=== PATIENT | male | born 1940 | race Caucasian/White ===

== ENCOUNTER 2020-02-14 02:45 | Inpatient (IN) ==
[2020-02-14] MEDS ORDERED: ACETAMINOPHEN 500 MG TABLET PO STA (03:34)
[2020-02-14] MEDS ORDERED: methylPREDNISolone SOD SUC 125 MG/2 ML VIAL IV STA (03:34)
[2020-02-14 03:49] LABS: ABG HCO3 19.4 MMOL/L (20-26); ABG Oxygen Saturation 94.6 % (95-100); ABG PCO2 29.8 MM HG (35-48); ABG PH 7.386 (7.35-7.45); ABG PO2 72.8 MM HG (80-95); ABG TCO2 15.9 MMOL/L (23-27); Allen Test Positive
[2020-02-14 03:56] LABS: Basophils % 0.2 % (0.0-0.8); Eosinophils % 0.3 % (0.00-10.9); Hematocrit 37.3 VOL% (42.0-52.0); Hemoglobin 12.1 GM/DL (14.0-18.0); Immature Granulocytes % 9.2 %; Immature Granulocytes Absolute 0.54 #; Lymphocytes # 0.2 10*3/uL (1.4-4.0); Lymphocytes % 3.6 % (21.2-54.2); Mean Corpuscular HGB Conc 32.4 GM/DL (32-36); Mean Platelet Volume 11.2 FL (9.6-12.0); Monocytes % 1.4 % (1.7-12.7); Neutrophils % 85.3 % (38.7-73.9); Platelet Count 162 T/CUMM (130-400); Red Blood Count 4.19 MC/CUMM (3.8-5.5); Red Cell Distribution Width 15.5 % (9.3-17.3); White Blood Count 5.9 T/CUMM (4-12)
[2020-02-14] MEDS ORDERED: SODIUM CHLORIDE 0.9% 1,000 ML IV STA (04:17)
[2020-02-14] MEDS ORDERED: PIPERACILLIN/TAZOBACTAM 3,375 MG in SODIUM CHLORIDE 0.9% 100 ML IV STA (04:18)
[2020-02-14 04:26] LABS: Band Neutrophils 2 % (0-10); Hypochromasia Slight; Lymphocytes 3 % (20-55); Segmented Neutrophils 95 % (50-85); Total Cells Counted 100
[2020-02-14 05:10] LABS: Apearance,Urine CLOUDY (Clear); Bacteria,Urine Many /HPF (Few); Blood, Urine Moderate mg/dL (Negative); Glucose,Urine (UA) 50 mg/dL (Negative); Ketones,Urine Negative (Negative); Nitrite,Urine Negative (Negative); Protein,Urine 100 MG/DL; RBC,Urine 43 /HPF (0-4); Squamous Epithelial Cell,Urine Occasional /HPF (0-10); Urine Color Amber (Yellow); Urine Specific Gravity 1.023 (1.001-1.035); WBC,Urine 433 /HPF (0-6)
[2020-02-14 05:12] LABS: Bilirubin,Urine Moderate mg/dL (Negative)
[2020-02-14 05:16] LABS: Alanine Aminotransferase 149 U/L (16-61); Albumin 2.8 G/DL (3.4-5.0); Alkaline Phosphatase 234 U/L (45-117); Aspartate Amino Transferase 220 U/L (0-37); Blood Urea Nitrogen 78 MG/DL (7-18); Estimated Glom Filtration Rate 14 ML/MIN; Ferritin 215.9 ng/ml (26-388); Glucose 238 MG/DL (74-106); Total Protein 7.1 G/DL (6.4-8.3)
[2020-02-14] MEDS ORDERED: ACETAMINOPHEN 325 MG TABLET PO PRN (05:27)
[2020-02-14] MEDS ORDERED: ONDANSETRON 4 MG/2 ML VIAL IV PRN (05:27)
[2020-02-14] MEDS: ASPIRIN 325 MG TABLET PO SCH (06:18)
[2020-02-14] MEDS: SODIUM CHLORIDE 0.9% 1,000 ML IV SCH ×2 (06:49→16:05)
[2020-02-14] MEDS: APIXABAN 2.5 MG TABLET PO SCH ×2 (09:11→20:27)
[2020-02-14] MEDS: methylPREDNISolone SOD SUC 40 MG/1 ML VIAL IV SCH ×2 (09:11→16:14)
[2020-02-14] MEDS: PANTOPRAZOLE 40 MG VIAL IV SCH (09:15)
[2020-02-14] MEDS: ALBUTEROL/IPRATROPIUM 3 ML NEB RESP TX SCH ×4 (12:20→23:55)
[2020-02-14] MEDS: INSULIN LISPRO 100 UNIT/ML SUBCUT SCH ×4 (12:32→23:33)
[2020-02-14] MEDS: SIMVASTATIN 20 MG TABLET PO SCH (18:07)
[2020-02-14] MEDS: PIPERACILLIN/TAZOBACTAM 3,375 MG in SODIUM CHLORIDE 0.9% 100 ML IV SCH (18:07)
[2020-02-14] MEDS: TAMSULOSIN 0.4 MG CAPSULE PO SCH (20:27)
[2020-02-15] MEDS: methylPREDNISolone SOD SUC 40 MG/1 ML VIAL IV SCH (01:12)
[2020-02-15] MEDS: ALBUTEROL/IPRATROPIUM 3 ML NEB RESP TX SCH ×5 (02:55→19:43)
[2020-02-15] MEDS: SODIUM CHLORIDE 0.9% 1,000 ML IV SCH ×3 (04:11→22:38)
[2020-02-15 05:23] LABS: Basophils % 0.1 % (0.0-0.8); Hematocrit 30.8 VOL% (42.0-52.0); Hemoglobin 9.9 GM/DL (14.0-18.0); Immature Granulocytes % 1.4 %; Immature Granulocytes Absolute 0.13 #; Lymphocytes # 0.4 10*3/uL (1.4-4.0); Lymphocytes % 4.6 % (21.2-54.2); Mean Corpuscular HGB Conc 32.1 GM/DL (32-36); Mean Corpuscular Volume 88.3 FL (87-102); Mean Platelet Volume 11.5 FL (9.6-12.0); Monocytes % 4.5 % (1.7-12.7); Neutrophils % 89.4 % (38.7-73.9); Platelet Count 104 T/CUMM (130-400); Red Blood Count 3.49 MC/CUMM (3.8-5.5); Red Cell Distribution Width 15.7 % (9.3-17.3); White Blood Count 9.1 T/CUMM (4-12)
[2020-02-15] MEDS: ASPIRIN 325 MG TABLET PO SCH (05:47)
[2020-02-15] MEDS: PIPERACILLIN/TAZOBACTAM 3,375 MG in SODIUM CHLORIDE 0.9% 100 ML IV SCH ×2 (05:47→17:08)
[2020-02-15 05:48] LABS: Band Neutrophils 9 % (0-10); Lymphocytes 3 % (20-55); Segmented Neutrophils 87 % (50-85); Total Cells Counted 100
[2020-02-15 05:49] LABS: Hypochromasia 1+
[2020-02-15 05:50] LABS: Microcytosis Slight
[2020-02-15 06:03] LABS: Alanine Aminotransferase 95 U/L (16-61); Albumin 2.3 G/DL (3.4-5.0); Alkaline Phosphatase 115 U/L (45-117); Aspartate Amino Transferase 138 U/L (0-37); Blood Urea Nitrogen 96 MG/DL (7-18); Calcium 7.7 MG/DL (8.5-10.1); Estimated Glom Filtration Rate 13 ML/MIN; Glucose 404 MG/DL (74-106); HDL Cholesterol < 10 MG/DL (40-60); Osmolality,Calculated 310.5 MOS/KG (273-304); Thyroid Stimulating Hormone 0.426 uIU/ml (0.358-3.74); Total Protein 6.2 G/DL (6.4-8.3); Triglycerides 217 MG/DL (2-150); VLDL CHOLESTEROL 43.4 MG/DL
[2020-02-15] MEDS ORDERED: methylPREDNISolone SOD SUC 40 MG/1 ML VIAL IV SCH (08:30)
[2020-02-15] MEDS: APIXABAN 2.5 MG TABLET PO SCH ×2 (08:54→20:51)
[2020-02-15] MEDS: sitaGLIPtin 100 MG TABLET PO SCH (08:54)
[2020-02-15] MEDS: METOPROLOL TARTRATE 25 MG TABLET PO SCH ×2 (08:55→20:51)
[2020-02-15] MEDS: INSULIN LISPRO 100 UNIT/ML SUBCUT SCH ×4 (08:58→20:51)
[2020-02-15] MEDS: PANTOPRAZOLE 40 MG VIAL IV SCH (09:03)
[2020-02-15] MEDS: GLIMEPIRIDE 4 MG TABLET PO SCH ×2 (09:04→20:51)
[2020-02-15] MEDS ORDERED: INSULIN LISPRO 100 UNIT/ML SUBCUT ONE ×2 (13:30→15:01)
[2020-02-15] MEDS: SIMVASTATIN 20 MG TABLET PO SCH (18:17)
[2020-02-15] MEDS: TAMSULOSIN 0.4 MG CAPSULE PO SCH (20:51)
[2020-02-16] MEDS: ALBUTEROL/IPRATROPIUM 3 ML NEB RESP TX SCH ×7 (00:46→23:30)
[2020-02-16 05:32] LABS: Basophils % 0.2 % (0.0-0.8); Hematocrit 30.8 VOL% (42.0-52.0); Hemoglobin 9.8 GM/DL (14.0-18.0); Immature Granulocytes % 6.2 %; Immature Granulocytes Absolute 0.64 #; Lymphocytes # 0.5 10*3/uL (1.4-4.0); Mean Corpuscular HGB Conc 31.8 GM/DL (32-36); Mean Corpuscular Volume 88.8 FL (87-102); Mean Platelet Volume 11.8 FL (9.6-12.0); Monocytes % 5.2 % (1.7-12.7); NRBC # 0.03 10*3/uL; Neutrophils % 83.4 % (38.7-73.9); Platelet Count 120 T/CUMM (130-400); Red Blood Count 3.47 MC/CUMM (3.8-5.5); Red Cell Distribution Width 16.2 % (9.3-17.3); White Blood Count 10.3 T/CUMM (4-12)
[2020-02-16] MEDS: ASPIRIN 325 MG TABLET PO SCH (05:45)
[2020-02-16] MEDS: PIPERACILLIN/TAZOBACTAM 3,375 MG in SODIUM CHLORIDE 0.9% 100 ML IV SCH (05:45)
[2020-02-16 05:57] LABS: Band Neutrophils 11 % (0-10); Lymphocytes 5 % (20-55); Nucleated Red Blood Cells 1 (0-5); Segmented Neutrophils 79 % (50-85); Total Cells Counted 100
[2020-02-16 05:58] LABS: Hypochromasia 1+; Microcytosis Slight; Platelet Estimate Adequate
[2020-02-16 06:00] LABS: Albumin 2.4 G/DL (3.4-5.0); Bilirubin,Total 1.4 MG/DL (0.2-1.0); Calcium 7.5 MG/DL (8.5-10.1); Osmolality,Calculated 305.4 MOS/KG (273-304); Total Protein 6.2 G/DL (6.4-8.3)
[2020-02-16] MEDS: METOPROLOL TARTRATE 25 MG TABLET PO SCH ×2 (09:58→22:28)
[2020-02-16] MEDS: sitaGLIPtin 100 MG TABLET PO SCH (09:58)
[2020-02-16] MEDS: APIXABAN 2.5 MG TABLET PO SCH ×2 (09:58→22:28)
[2020-02-16] MEDS: INSULIN LISPRO 100 UNIT/ML SUBCUT SCH ×3 (09:58→22:28)
[2020-02-16] MEDS: GLIMEPIRIDE 4 MG TABLET PO SCH ×2 (09:59→22:28)
[2020-02-16] MEDS: PANTOPRAZOLE 40 MG VIAL IV SCH (09:59)
[2020-02-16] MEDS: SODIUM CHLORIDE 0.9% 1,000 ML IV SCH ×2 (10:32→10:33)
[2020-02-16] MEDS: cefTRIAXone 1,000 MG in SYRINGE 1 EACH IV SCH (18:18)
[2020-02-16] MEDS: SIMVASTATIN 20 MG TABLET PO SCH (18:19)
[2020-02-16] MEDS: TAMSULOSIN 0.4 MG CAPSULE PO SCH (22:28)
[2020-02-17] MEDS: ALBUTEROL/IPRATROPIUM 3 ML NEB RESP TX SCH ×6 (02:20→23:21)
[2020-02-17 04:55] LABS: Basophils % 0.1 % (0.0-0.8); Eosinophils % 0.1 % (0.00-10.9); Hematocrit 29.3 VOL% (42.0-52.0); Hemoglobin 9.5 GM/DL (14.0-18.0); Immature Granulocytes % 6.7 %; Immature Granulocytes Absolute 0.61 #; Lymphocytes # 0.7 10*3/uL (1.4-4.0); Lymphocytes % 7.9 % (21.2-54.2); Mean Corpuscular HGB Conc 32.4 GM/DL (32-36); Mean Corpuscular Volume 88.8 FL (87-102); Mean Platelet Volume 12.1 FL (9.6-12.0); Monocytes % 6.5 % (1.7-12.7); NRBC # 0.02 10*3/uL; Neutrophils % 78.7 % (38.7-73.9); Platelet Count 126 T/CUMM (130-400); Red Cell Distribution Width 16.3 % (9.3-17.3); White Blood Count 9.1 T/CUMM (4-12)
[2020-02-17 05:01] LABS: Albumin 2.3 G/DL (3.4-5.0); Bilirubin,Total 0.7 MG/DL (0.2-1.0); Calcium 7.4 MG/DL (8.5-10.1); Osmolality,Calculated 315.4 MOS/KG (273-304); Total Protein 5.9 G/DL (6.4-8.3)
[2020-02-17 05:30] LABS: Band Neutrophils 4 % (0-10); Eosinophils 1 % (0-10); Hypochromasia 1+; Lymphocytes 8 % (20-55); Metamyelocytes 2 %; Microcytosis 1+; Nucleated Red Blood Cells 2 (0-5); Segmented Neutrophils 78 % (50-85); Total Cells Counted 100
[2020-02-17 05:31] LABS: Platelet Estimate Adequate
[2020-02-17] MEDS: ASPIRIN 325 MG TABLET PO SCH (05:40)
[2020-02-17] MEDS: SODIUM CHLORIDE 0.9% 1,000 ML IV SCH ×4 (05:43→19:55)
[2020-02-17] MEDS: INSULIN LISPRO 100 UNIT/ML SUBCUT SCH ×4 (08:57→20:33)
[2020-02-17] MEDS: PANTOPRAZOLE 40 MG VIAL IV SCH (08:58)
[2020-02-17] MEDS: GLIMEPIRIDE 4 MG TABLET PO SCH ×2 (08:58→21:17)
[2020-02-17] MEDS: APIXABAN 2.5 MG TABLET PO SCH ×2 (08:59→21:17)
[2020-02-17] MEDS: sitaGLIPtin 100 MG TABLET PO SCH (08:59)
[2020-02-17] MEDS: METOPROLOL TARTRATE 25 MG TABLET PO SCH ×2 (08:59→21:17)
[2020-02-17] MEDS: cefTRIAXone 1,000 MG in SYRINGE 1 EACH IV SCH (15:47)
[2020-02-17] MEDS: AMPICILLIN INJ 1,000 MG in SODIUM CHLORIDE 0.9% 100 ML IV SCH (16:48)
[2020-02-17] MEDS: SIMVASTATIN 20 MG TABLET PO SCH (19:03)
[2020-02-17] MEDS: TAMSULOSIN 0.4 MG CAPSULE PO SCH (21:17)
[2020-02-18] MEDS ORDERED: AMIODARONE INJ 150 MG in DEXTROSE 5% 100 ML IV ONE (00:30)
[2020-02-18] MEDS ORDERED: AMIODARONE INJ 450 MG in DEXTROSE 5% 241 ML IV SCH ×2 (00:30→06:30)
[2020-02-18] MEDS: ALBUTEROL/IPRATROPIUM 3 ML NEB RESP TX SCH ×5 (03:16→20:16)
[2020-02-18] MEDS: AMPICILLIN INJ 1,000 MG in SODIUM CHLORIDE 0.9% 100 ML IV SCH ×2 (03:57→16:01)
[2020-02-18 05:12] LABS: Basophils % 0.3 % (0.0-0.8); Eosinophils % 0.4 % (0.00-10.9); Hematocrit 31.9 VOL% (42.0-52.0); Hemoglobin 10.2 GM/DL (14.0-18.0); Immature Granulocytes % 9.9 %; Immature Granulocytes Absolute 1.06 #; Lymphocytes # 0.6 10*3/uL (1.4-4.0); Lymphocytes % 5.3 % (21.2-54.2); Mean Corpuscular Volume 89.6 FL (87-102); Mean Platelet Volume 11.5 FL (9.6-12.0); Neutrophils % 78.1 % (38.7-73.9); Platelet Count 123 T/CUMM (130-400); Red Blood Count 3.56 MC/CUMM (3.8-5.5); Red Cell Distribution Width 16.6 % (9.3-17.3); White Blood Count 10.7 T/CUMM (4-12)
[2020-02-18 05:46] LABS: Albumin 2.4 G/DL (3.4-5.0); Band Neutrophils 2 % (0-10); Bilirubin,Total 0.8 MG/DL (0.2-1.0); Calcium 7.9 MG/DL (8.5-10.1); Eosinophils 1 % (0-10); Lymphocytes 8 % (20-55); Metamyelocytes 2 %; Osmolality,Calculated 312.7 MOS/KG (273-304); Platelet Estimate Decreased; Segmented Neutrophils 81 % (50-85); Total Cells Counted 100; Total Protein 6.1 G/DL (6.4-8.3)
[2020-02-18 05:47] LABS: Hypochromasia Slight
[2020-02-18] MEDS: ASPIRIN 325 MG TABLET PO SCH (06:02)
[2020-02-18] MEDS: SODIUM CHLORIDE 0.9% 1,000 ML IV SCH (06:13)
[2020-02-18] MEDS: PANTOPRAZOLE 40 MG VIAL IV SCH (09:49)
[2020-02-18] MEDS: INSULIN LISPRO 100 UNIT/ML SUBCUT SCH ×4 (09:50→22:02)
[2020-02-18] MEDS: METOPROLOL TARTRATE 25 MG TABLET PO SCH ×2 (09:50→21:21)
[2020-02-18] MEDS: APIXABAN 2.5 MG TABLET PO SCH ×2 (09:51→21:21)
[2020-02-18] MEDS: GLIMEPIRIDE 4 MG TABLET PO SCH ×2 (09:51→21:21)
[2020-02-18] MEDS: sitaGLIPtin 100 MG TABLET PO SCH (09:51)
[2020-02-18] MEDS ORDERED: GLUCAGON 1 MG VIAL IV PRN (16:04)
[2020-02-18] MEDS: BUDESONIDE/FORMOTEROL 160-4.5 INHALER 6 GM INH SCH (21:20)
[2020-02-18] MEDS: TAMSULOSIN 0.4 MG CAPSULE PO SCH (21:21)
[2020-02-18] MEDS: AMIODARONE 200 MG TABLET PO SCH (21:21)
[2020-02-18] MEDS: SIMVASTATIN 20 MG TABLET PO SCH (21:21)
[2020-02-19] MEDS: ALBUTEROL/IPRATROPIUM 3 ML NEB RESP TX SCH ×6 (00:39→19:33)
[2020-02-19] MEDS: SODIUM CHLORIDE 0.9% 1,000 ML IV SCH ×2 (02:32→16:26)
[2020-02-19] MEDS: AMPICILLIN INJ 1,000 MG in SODIUM CHLORIDE 0.9% 100 ML IV SCH ×2 (04:30→16:33)
[2020-02-19] MEDS: ASPIRIN 325 MG TABLET PO SCH (06:00)
[2020-02-19 06:08] LABS: Basophils # 0.1 10*3/uL (0.0-0.2); Basophils % 0.5 % (0.0-0.8); Eosinophils # 0.1 10*3/uL (0.0-0.87); Eosinophils % 1.1 % (0.00-10.9); Hematocrit 33.6 VOL% (42.0-52.0); Hemoglobin 10.5 GM/DL (14.0-18.0); Immature Granulocytes % 12.7 %; Immature Granulocytes Absolute 1.62 #; Mean Corpuscular HGB Conc 31.3 GM/DL (32-36); Mean Corpuscular Volume 90.3 FL (87-102); Mean Platelet Volume 11.2 FL (9.6-12.0); Monocytes % 4.6 % (1.7-12.7); Neutrophils % 73.1 % (38.7-73.9); Platelet Count 155 T/CUMM (130-400); Red Blood Count 3.72 MC/CUMM (3.8-5.5); Red Cell Distribution Width 16.6 % (9.3-17.3); White Blood Count 12.8 T/CUMM (4-12)
[2020-02-19 06:34] LABS: Albumin 2.5 G/DL (3.4-5.0); Calcium 8.3 MG/DL (8.5-10.1); Osmolality,Calculated 311.3 MOS/KG (273-304); Total Protein 6.3 G/DL (6.4-8.3)
[2020-02-19 08:41] LABS: Band Neutrophils 7 % (0-10); Eosinophils 1 % (0-10); Lymphocytes 12 % (20-55); Metamyelocytes 2 %; Myelocytes 2 %; Platelet Estimate Normal; Segmented Neutrophils 72 % (50-85); Total Cells Counted 100
[2020-02-19 08:42] LABS: Anisocytosis 1+
[2020-02-19 08:45] LABS: Macrocytosis Slight
[2020-02-19] MEDS: INSULIN LISPRO 100 UNIT/ML SUBCUT SCH ×4 (08:46→20:52)
[2020-02-19] MEDS: PANTOPRAZOLE 40 MG VIAL IV SCH (09:11)
[2020-02-19] MEDS: sitaGLIPtin 100 MG TABLET PO SCH (09:12)
[2020-02-19] MEDS: GLIMEPIRIDE 4 MG TABLET PO SCH ×2 (09:12→20:53)
[2020-02-19] MEDS: AMIODARONE 200 MG TABLET PO SCH ×2 (09:12→20:53)
[2020-02-19] MEDS: APIXABAN 2.5 MG TABLET PO SCH ×2 (09:12→20:52)
[2020-02-19] MEDS: BUDESONIDE/FORMOTEROL 160-4.5 INHALER 6 GM INH SCH ×2 (09:12→20:54)
[2020-02-19] MEDS: METOPROLOL TARTRATE 25 MG TABLET PO SCH ×2 (09:12→20:52)
[2020-02-19] MEDS: TAMSULOSIN 0.4 MG CAPSULE PO SCH (20:52)
[2020-02-19] MEDS: SIMVASTATIN 20 MG TABLET PO SCH (20:52)
[2020-02-19] MEDS ORDERED: METOPROLOL TARTRATE 25 MG TABLET PO ONE (21:11)
[2020-02-20] MEDS: IPRATROPIUM 500 MCG/2.5 ML NEB RESP TX SCH ×4 (00:29→19:30)
[2020-02-20] MEDS: SODIUM CHLORIDE 0.9% 1,000 ML IV SCH ×2 (04:34→20:07)
[2020-02-20] MEDS: AMPICILLIN INJ 1,000 MG in SODIUM CHLORIDE 0.9% 100 ML IV SCH ×2 (04:34→16:32)
[2020-02-20] MEDS: ASPIRIN 325 MG TABLET PO SCH (04:35)
[2020-02-20 06:03] LABS: Basophils % 0.3 % (0.0-0.8)
[2020-02-20 06:10] LABS: Eosinophils # 0.3 10*3/uL (0.0-0.87); Eosinophils % 2.3 % (0.00-10.9); Hematocrit 27.7 VOL% (42.0-52.0); Hemoglobin 8.6 GM/DL (14.0-18.0); Immature Granulocytes % 13.1 %; Immature Granulocytes Absolute 1.56 #; Lymphocytes # 0.8 10*3/uL (1.4-4.0); Lymphocytes % 6.5 % (21.2-54.2); Mean Corpuscular Volume 90.5 FL (87-102); Monocytes % 4.3 % (1.7-12.7); Neutrophils % 73.5 % (38.7-73.9); Platelet Count 197 T/CUMM (130-400); Red Blood Count 3.06 MC/CUMM (3.8-5.5); Red Cell Distribution Width 16.6 % (9.3-17.3); White Blood Count 11.9 T/CUMM (4-12)
[2020-02-20 07:06] LABS: Band Neutrophils 1 % (0-10); Eosinophils 2 % (0-10); Hypochromasia Slight; Lymphocytes 13 % (20-55); Metamyelocytes 3 %; Myelocytes 2 %; Platelet Estimate Normal; Segmented Neutrophils 71 % (50-85); Total Cells Counted 100
[2020-02-20] MEDS: INSULIN LISPRO 100 UNIT/ML SUBCUT SCH ×4 (08:07→21:12)
[2020-02-20 08:45] LABS: Albumin 2.2 G/DL (3.4-5.0); Bilirubin,Total 0.7 MG/DL (0.2-1.0); Calcium 8.2 MG/DL (8.5-10.1); Total Protein 5.6 G/DL (6.4-8.3); Uric Acid 11.9 MG/DL (3.5-7.2)
[2020-02-20] MEDS: METOPROLOL TARTRATE 50 MG TABLET PO SCH ×2 (09:30→21:11)
[2020-02-20] MEDS: GLIMEPIRIDE 4 MG TABLET PO SCH ×2 (09:30→21:12)
[2020-02-20] MEDS: APIXABAN 2.5 MG TABLET PO SCH ×2 (09:30→21:11)
[2020-02-20] MEDS: AMIODARONE 200 MG TABLET PO SCH ×2 (09:30→21:11)
[2020-02-20] MEDS: sitaGLIPtin 100 MG TABLET PO SCH (09:31)
[2020-02-20] MEDS: BUDESONIDE/FORMOTEROL 160-4.5 INHALER 6 GM INH SCH ×2 (09:31→21:13)
[2020-02-20] MEDS: PANTOPRAZOLE 40 MG VIAL IV SCH (09:31)
[2020-02-20] MEDS: SIMVASTATIN 20 MG TABLET PO SCH (21:12)
[2020-02-20] MEDS: TAMSULOSIN 0.4 MG CAPSULE PO SCH (21:12)
[2020-02-21] MEDS: IPRATROPIUM 500 MCG/2.5 ML NEB RESP TX SCH ×4 (03:15→19:57)
[2020-02-21] MEDS: AMPICILLIN INJ 1,000 MG in SODIUM CHLORIDE 0.9% 100 ML IV SCH ×2 (03:42→17:10)
[2020-02-21] MEDS: SODIUM CHLORIDE 0.9% 1,000 ML IV SCH (05:12)
[2020-02-21 05:29] LABS: Basophils % 0.2 % (0.0-0.8); Eosinophils # 0.3 10*3/uL (0.0-0.87); Eosinophils % 3.1 % (0.00-10.9); Hematocrit 26.7 VOL% (42.0-52.0); Hemoglobin 8.4 GM/DL (14.0-18.0); Immature Granulocytes % 11.4 %; Immature Granulocytes Absolute 1.13 #; Lymphocytes # 0.7 10*3/uL (1.4-4.0); Lymphocytes % 7.3 % (21.2-54.2); Mean Corpuscular HGB Conc 31.5 GM/DL (32-36); Mean Corpuscular Volume 90.2 FL (87-102); Mean Platelet Volume 10.5 FL (9.6-12.0); Monocytes % 4.8 % (1.7-12.7); Neutrophils % 73.2 % (38.7-73.9); Platelet Count 206 T/CUMM (130-400); Red Blood Count 2.96 MC/CUMM (3.8-5.5); Red Cell Distribution Width 16.4 % (9.3-17.3); White Blood Count 9.9 T/CUMM (4-12)
[2020-02-21] MEDS: ASPIRIN 325 MG TABLET PO SCH (05:31)
[2020-02-21 05:46] LABS: Calcium 8.3 MG/DL (8.5-10.1); Osmolality,Calculated 308.7 MOS/KG (273-304)
[2020-02-21 05:51] LABS: Eosinophils 1 % (0-10); Lymphocytes 12 % (20-55); Platelet Estimate Adequate; Segmented Neutrophils 83 % (50-85); Total Cells Counted 100
[2020-02-21 05:52] LABS: Hypochromasia 1+
[2020-02-21] MEDS: GLIMEPIRIDE 4 MG TABLET PO SCH ×2 (09:27→21:22)
[2020-02-21] MEDS: MAGNESIUM SULF INJ 2 GM in SODIUM CHLORIDE 0.9% 1,000 ML IV SCH (09:27)
[2020-02-21] MEDS: APIXABAN 2.5 MG TABLET PO SCH ×2 (09:27→21:22)
[2020-02-21] MEDS: BUDESONIDE/FORMOTEROL 160-4.5 INHALER 6 GM INH SCH ×2 (09:28→21:22)
[2020-02-21] MEDS: MAGNESIUM CHLORIDE 64 MG TABLET PO SCH ×2 (09:28→21:22)
[2020-02-21] MEDS: AMIODARONE 200 MG TABLET PO SCH ×2 (09:28→21:22)
[2020-02-21] MEDS: METOPROLOL TARTRATE 50 MG TABLET PO SCH ×2 (09:28→21:22)
[2020-02-21] MEDS: INSULIN LISPRO 100 UNIT/ML SUBCUT SCH ×4 (09:29→21:43)
[2020-02-21] MEDS: PANTOPRAZOLE 40 MG VIAL IV SCH (09:31)
[2020-02-21] MEDS: sitaGLIPtin 100 MG TABLET PO SCH (09:32)
[2020-02-21] MEDS: SIMVASTATIN 20 MG TABLET PO SCH (21:22)
[2020-02-21] MEDS: TAMSULOSIN 0.4 MG CAPSULE PO SCH (21:22)
[2020-02-22] MEDS: IPRATROPIUM 500 MCG/2.5 ML NEB RESP TX SCH ×4 (01:25→19:27)
[2020-02-22] MEDS: AMPICILLIN INJ 1,000 MG in SODIUM CHLORIDE 0.9% 100 ML IV SCH ×2 (03:50→15:17)
[2020-02-22] MEDS: MAGNESIUM SULF INJ 2 GM in SODIUM CHLORIDE 0.9% 1,000 ML IV SCH (03:50)
[2020-02-22 06:02] LABS: Basophils % 0.2 % (0.0-0.8); Eosinophils # 0.2 10*3/uL (0.0-0.87); Eosinophils % 2.1 % (0.00-10.9); Hemoglobin 8.4 GM/DL (14.0-18.0); Immature Granulocytes % 9.1 %; Immature Granulocytes Absolute 0.79 #; Lymphocytes # 0.7 10*3/uL (1.4-4.0); Mean Corpuscular HGB Conc 31.1 GM/DL (32-36); Mean Corpuscular Volume 91.5 FL (87-102); Mean Platelet Volume 10.2 FL (9.6-12.0); Monocytes % 5.2 % (1.7-12.7); Neutrophils % 75.4 % (38.7-73.9); Platelet Count 207 T/CUMM (130-400); Red Blood Count 2.95 MC/CUMM (3.8-5.5); Red Cell Distribution Width 16.1 % (9.3-17.3); White Blood Count 8.7 T/CUMM (4-12)
[2020-02-22 06:18] LABS: Calcium 8.1 MG/DL (8.5-10.1); Osmolality,Calculated 302.6 MOS/KG (273-304)
[2020-02-22 06:37] LABS: Band Neutrophils 3 % (0-10); Eosinophils 2 % (0-10); Lymphocytes 11 % (20-55); Metamyelocytes 2 %; Segmented Neutrophils 81 % (50-85); Total Cells Counted 100
[2020-02-22 06:38] LABS: Anisocytosis 1+; Hypochromasia 1+; Microcytosis 1+; Platelet Estimate Normal
[2020-02-22] MEDS ORDERED: ASPIRIN 325 MG TABLET PO SCH (09:00)
[2020-02-22] MEDS ORDERED: DEXTROSE 50% 25 GM/50 ML VIAL IV PRN (10:48)
[2020-02-22] MEDS: TRIAMTERENE/HCTZ 37.5-25 MG CAPSULE PO SCH (11:05)
[2020-02-22] MEDS: sitaGLIPtin 100 MG TABLET PO SCH (11:06)
[2020-02-22] MEDS: MAGNESIUM CHLORIDE 64 MG TABLET PO SCH ×2 (11:06→21:39)
[2020-02-22] MEDS: ASPIRIN EC 81 MG TABLET PO SCH (11:06)
[2020-02-22] MEDS: APIXABAN 2.5 MG TABLET PO SCH ×2 (11:06→21:38)
[2020-02-22] MEDS: MONTELUKAST 10 MG TABLET PO SCH (11:07)
[2020-02-22] MEDS: INSULIN LISPRO 100 UNIT/ML SUBCUT SCH ×4 (11:07→21:39)
[2020-02-22] MEDS: PANTOPRAZOLE 40 MG VIAL IV SCH (11:07)
[2020-02-22] MEDS: AMIODARONE 200 MG TABLET PO SCH ×2 (11:07→21:39)
[2020-02-22] MEDS: BUDESONIDE/FORMOTEROL 160-4.5 INHALER 6 GM INH SCH ×2 (11:07→21:40)
[2020-02-22] MEDS: METOPROLOL TARTRATE 50 MG TABLET PO SCH ×2 (11:07→21:39)
[2020-02-22] MEDS: GLIMEPIRIDE 4 MG TABLET PO SCH ×2 (11:09→21:39)
[2020-02-22] MEDS: TAMSULOSIN 0.4 MG CAPSULE PO SCH (21:39)
[2020-02-22] MEDS: SIMVASTATIN 20 MG TABLET PO SCH (21:39)
[2020-02-23] MEDS: IPRATROPIUM 500 MCG/2.5 ML NEB RESP TX SCH ×4 (01:00→19:58)
[2020-02-23] MEDS: AMPICILLIN INJ 1,000 MG in SODIUM CHLORIDE 0.9% 100 ML IV SCH ×2 (04:20→16:18)
[2020-02-23 04:53] LABS: Basophils % 0.2 % (0.0-0.8); Eosinophils # 0.2 10*3/uL (0.0-0.87); Eosinophils % 1.9 % (0.00-10.9); Hematocrit 25.8 VOL% (42.0-52.0); Hemoglobin 8.2 GM/DL (14.0-18.0); Immature Granulocytes % 6.3 %; Immature Granulocytes Absolute 0.54 #; Lymphocytes # 0.7 10*3/uL (1.4-4.0); Lymphocytes % 8.2 % (21.2-54.2); Mean Corpuscular HGB Conc 31.8 GM/DL (32-36); Mean Corpuscular Volume 89.3 FL (87-102); Mean Platelet Volume 10.7 FL (9.6-12.0); Neutrophils % 76.4 % (38.7-73.9); Platelet Count 220 T/CUMM (130-400); Red Blood Count 2.89 MC/CUMM (3.8-5.5); Red Cell Distribution Width 16.1 % (9.3-17.3); White Blood Count 8.6 T/CUMM (4-12)
[2020-02-23 05:18] LABS: Band Neutrophils 6 % (0-10); Hypochromasia 1+; Lymphocytes 8 % (20-55); Microcytosis 1+; Platelet Estimate Adequate; Segmented Neutrophils 81 % (50-85); Total Cells Counted 100
[2020-02-23 05:37] LABS: Calcium 8.5 MG/DL (8.5-10.1); Osmolality,Calculated 299.8 MOS/KG (273-304)
[2020-02-23] MEDS: INSULIN LISPRO 100 UNIT/ML SUBCUT SCH ×4 (08:28→21:16)
[2020-02-23] MEDS: TRIAMTERENE/HCTZ 37.5-25 MG CAPSULE PO SCH (09:22)
[2020-02-23] MEDS: sitaGLIPtin 100 MG TABLET PO SCH (09:22)
[2020-02-23] MEDS: APIXABAN 2.5 MG TABLET PO SCH ×2 (09:22→21:16)
[2020-02-23] MEDS: ASPIRIN EC 81 MG TABLET PO SCH (09:22)
[2020-02-23] MEDS: PANTOPRAZOLE 40 MG VIAL IV SCH (09:22)
[2020-02-23] MEDS: METOPROLOL TARTRATE 50 MG TABLET PO SCH ×2 (09:22→21:16)
[2020-02-23] MEDS: MAGNESIUM CHLORIDE 64 MG TABLET PO SCH ×2 (09:22→21:16)
[2020-02-23] MEDS: MONTELUKAST 10 MG TABLET PO SCH (09:22)
[2020-02-23] MEDS: GLIMEPIRIDE 4 MG TABLET PO SCH ×2 (09:22→21:16)
[2020-02-23] MEDS: AMIODARONE 200 MG TABLET PO SCH ×2 (09:22→21:16)
[2020-02-23] MEDS: BUDESONIDE/FORMOTEROL 160-4.5 INHALER 6 GM INH SCH ×2 (09:22→21:17)
[2020-02-23] MEDS: TAMSULOSIN 0.4 MG CAPSULE PO SCH (21:16)
[2020-02-23] MEDS: SIMVASTATIN 20 MG TABLET PO SCH (21:21)
[2020-02-24] MEDS: IPRATROPIUM 500 MCG/2.5 ML NEB RESP TX SCH ×4 (01:08→19:17)
[2020-02-24] MEDS: AMPICILLIN INJ 1,000 MG in SODIUM CHLORIDE 0.9% 100 ML IV SCH ×2 (04:07→16:16)
[2020-02-24 05:54] LABS: Basophils % 0.2 % (0.0-0.8); Eosinophils # 0.2 10*3/uL (0.0-0.87); Eosinophils % 1.9 % (0.00-10.9); Hemoglobin 8.6 GM/DL (14.0-18.0); Immature Granulocytes % 3.9 %; Immature Granulocytes Absolute 0.37 #; Lymphocytes # 0.9 10*3/uL (1.4-4.0); Lymphocytes % 9.1 % (21.2-54.2); Mean Corpuscular HGB Conc 31.9 GM/DL (32-36); Mean Corpuscular Volume 89.7 FL (87-102); Mean Platelet Volume 10.2 FL (9.6-12.0); Monocytes % 6.7 % (1.7-12.7); Neutrophils % 78.2 % (38.7-73.9); Platelet Count 225 T/CUMM (130-400); Red Blood Count 3.01 MC/CUMM (3.8-5.5); Red Cell Distribution Width 15.9 % (9.3-17.3); White Blood Count 9.5 T/CUMM (4-12)
[2020-02-24 06:20] LABS: Calcium 8.4 MG/DL (8.5-10.1); Osmolality,Calculated 296.7 MOS/KG (273-304)
[2020-02-24] MEDS ORDERED: POTASSIUM CHLORIDE 20 MEQ TABLET PO ONE (07:46)
[2020-02-24] MEDS ORDERED: MAGNESIUM SULF RIDER 2 GM in PREMIX 1 EACH IV ONE (07:46)
[2020-02-24] MEDS: INSULIN LISPRO 100 UNIT/ML SUBCUT SCH ×4 (08:02→20:39)
[2020-02-24] MEDS: METOPROLOL TARTRATE 50 MG TABLET PO SCH ×2 (09:25→20:39)
[2020-02-24] MEDS: TRIAMTERENE/HCTZ 37.5-25 MG CAPSULE PO SCH (09:25)
[2020-02-24] MEDS: ASPIRIN EC 81 MG TABLET PO SCH (09:25)
[2020-02-24] MEDS: sitaGLIPtin 100 MG TABLET PO SCH (09:25)
[2020-02-24] MEDS: MAGNESIUM CHLORIDE 64 MG TABLET PO SCH ×2 (09:25→20:39)
[2020-02-24] MEDS: GLIMEPIRIDE 4 MG TABLET PO SCH ×2 (09:25→20:39)
[2020-02-24] MEDS: MONTELUKAST 10 MG TABLET PO SCH (09:25)
[2020-02-24] MEDS: cefTRIAXone 1,000 MG in SYRINGE 1 EACH IV SCH (09:25)
[2020-02-24] MEDS: BUDESONIDE/FORMOTEROL 160-4.5 INHALER 6 GM INH SCH ×2 (09:25→20:43)
[2020-02-24] MEDS: APIXABAN 2.5 MG TABLET PO SCH ×2 (09:25→20:39)
[2020-02-24] MEDS: AMIODARONE 200 MG TABLET PO SCH ×2 (09:25→20:39)
[2020-02-24] MEDS: PANTOPRAZOLE 40 MG VIAL IV SCH (09:29)
[2020-02-24] MEDS: SIMVASTATIN 20 MG TABLET PO SCH (20:39)
[2020-02-24] MEDS: TAMSULOSIN 0.4 MG CAPSULE PO SCH (20:39)
[2020-02-25] MEDS: IPRATROPIUM 500 MCG/2.5 ML NEB RESP TX SCH ×2 (01:15→07:48)
[2020-02-25 06:23] LABS: Basophils % 0.2 % (0.0-0.8); Eosinophils # 0.1 10*3/uL (0.0-0.87); Eosinophils % 1.4 % (0.00-10.9); Immature Granulocytes % 2.8 %; Immature Granulocytes Absolute 0.26 #; Lymphocytes # 0.8 10*3/uL (1.4-4.0); Lymphocytes % 8.7 % (21.2-54.2); Mean Corpuscular Volume 89.6 FL (87-102); Mean Platelet Volume 10.4 FL (9.6-12.0); Neutrophils % 79.9 % (38.7-73.9); Platelet Count 222 T/CUMM (130-400); Red Blood Count 2.79 MC/CUMM (3.8-5.5); Red Cell Distribution Width 15.9 % (9.3-17.3); White Blood Count 9.4 T/CUMM (4-12)
[2020-02-25 07:03] LABS: Calcium 8.3 MG/DL (8.5-10.1)
[2020-02-25] MEDS ORDERED: SULFAMETHOX/TRIMETHOPRIM 800-160 MG TABLET PO SCH (09:00)
[2020-02-25] MEDS: MAGNESIUM CHLORIDE 64 MG TABLET PO SCH (09:29)
[2020-02-25] MEDS: METOPROLOL TARTRATE 50 MG TABLET PO SCH (09:29)
[2020-02-25] MEDS: MONTELUKAST 10 MG TABLET PO SCH (09:29)
[2020-02-25] MEDS: INSULIN LISPRO 100 UNIT/ML SUBCUT SCH ×2 (09:30→13:00)
[2020-02-25] MEDS: AMIODARONE 200 MG TABLET PO SCH (09:30)
[2020-02-25] MEDS: APIXABAN 2.5 MG TABLET PO SCH (09:30)
[2020-02-25] MEDS: TRIAMTERENE/HCTZ 37.5-25 MG CAPSULE PO SCH (09:30)
[2020-02-25] MEDS: ASPIRIN EC 81 MG TABLET PO SCH (09:30)
[2020-02-25] MEDS: sitaGLIPtin 100 MG TABLET PO SCH (09:31)
[2020-02-25] MEDS: BUDESONIDE/FORMOTEROL 160-4.5 INHALER 6 GM INH SCH (09:31)
[2020-02-25] MEDS: PANTOPRAZOLE 40 MG VIAL IV SCH (09:31)
[2020-02-25] MEDS: GLIMEPIRIDE 4 MG TABLET PO SCH (09:31)
[2020-02-25] MEDS: cefTRIAXone 1,000 MG in SYRINGE 1 EACH IV SCH (09:32)
[2020-02-25 11:53] VITALS: BP 117/62
== END 2020-02-25 13:02 | disposition home or self-care (01) | DRG 190 ==
LOC: N.ED 02:45 → N.EDINP 05:26 → N.TELEN 07:22
PROVIDERS: ADMIT Family Medicine; ATTEND Family Medicine

== ENCOUNTER 2020-03-01 13:10 | Inpatient (IN) ==
[2020-03-01 13:37] LABS: Basophils # 0.1 10*3/uL (0.0-0.2); Eosinophils # 0.1 10*3/uL (0.0-0.87); Eosinophils % 1.9 % (0.00-10.9); Hematocrit 29.7 VOL% (42.0-52.0); Hemoglobin 9.1 GM/DL (14.0-18.0); Immature Granulocytes % 1.7 %; Immature Granulocytes Absolute 0.12 #; Lymphocytes # 0.8 10*3/uL (1.4-4.0); Lymphocytes % 11.6 % (21.2-54.2); Mean Corpuscular HGB Conc 30.6 GM/DL (32-36); Mean Corpuscular Volume 94.3 FL (87-102); Mean Platelet Volume 9.8 FL (9.6-12.0); Monocytes % 8.1 % (1.7-12.7); Neutrophils % 75.7 % (38.7-73.9); Platelet Count 224 T/CUMM (130-400); Red Blood Count 3.15 MC/CUMM (3.8-5.5); Red Cell Distribution Width 17.1 % (9.3-17.3)
[2020-03-01 13:56] LABS: Albumin 3.1 G/DL (3.4-5.0); Bilirubin,Total 0.5 MG/DL (0.2-1.0); Calcium 8.6 MG/DL (8.5-10.1); Osmolality,Calculated 282.7 MOS/KG (273-304); Total Protein 6.3 G/DL (6.4-8.3)
[2020-03-01] MEDS ORDERED: ALBUTEROL/IPRATROPIUM 3 ML NEB RESP TX STA (14:28)
[2020-03-01] MEDS ORDERED: methylPREDNISolone SOD SUC 125 MG/2 ML VIAL IV STA (14:28)
[2020-03-01 14:59] LABS: ABG Base Excess -1.9 MMOL/L (-2.5-2.5); ABG HCO3 22.6 MMOL/L (20-26); ABG Oxygen Saturation 87.5 % (95-100); ABG PCO2 41.1 MM HG (35-48); ABG PH 7.362 (7.35-7.45); ABG PO2 57.1 MM HG (80-95); ABG TCO2 21.7 MMOL/L (23-27)
[2020-03-01 15:01] LABS: Apearance,Urine CLEAR (Clear); Bacteria,Urine Occasional /HPF (Few); Bilirubin,Urine Negative (Negative); Blood, Urine Small mg/dL (Negative); Glucose,Urine (UA) Negative (Negative); Hyaline Casts,Urine 3 /LPF (0-3); Ketones,Urine Negative (Negative); Mucus,Urine Occasional /LPF (Occasional); Nitrite,Urine Negative (Negative); Protein,Urine Negative; RBC,Urine 5 /HPF (0-4); Squamous Epithelial Cell,Urine Occasional /HPF (0-10); Urine Color Yellow (Yellow); Urine Specific Gravity 1.013 (1.001-1.035); Urine Urobilinogen < 2.0 EU/DL (0.2-1.0); WBC,Urine 4 /HPF (0-6)
[2020-03-01] MEDS ORDERED: FUROSEMIDE 40 MG/4 ML VIAL IV STA (15:07)
[2020-03-01] MEDS ORDERED: GLUCAGON 1 MG VIAL IM PRN (15:59)
[2020-03-01] MEDS ORDERED: ACETAMINOPHEN 325 MG TABLET PO PRN (15:59)
[2020-03-01] MEDS ORDERED: ONDANSETRON 4 MG/2 ML VIAL IV PRN (15:59)
[2020-03-01] MEDS ORDERED: DEXTROSE 50% 25 GM/50 ML VIAL IV PRN (15:59)
[2020-03-01] MEDS: INSULIN REGULAR 100 UNIT/ML SUBCUT SCH ×2 (16:50→21:53)
[2020-03-01] MEDS: MONTELUKAST 10 MG TABLET PO SCH (18:15)
[2020-03-01 18:54] LABS: Troponin I < 0.015 NG/ML (0.00-0.045)
[2020-03-01] MEDS: AMIODARONE 200 MG TABLET PO SCH (21:51)
[2020-03-01] MEDS: DOCUSATE SODIUM 100 MG CAPSULE PO SCH (21:52)
[2020-03-01] MEDS: METOPROLOL TARTRATE 50 MG TABLET PO SCH (21:52)
[2020-03-01] MEDS: SIMVASTATIN 20 MG TABLET PO SCH (21:52)
[2020-03-01] MEDS: TAMSULOSIN 0.4 MG CAPSULE PO SCH (21:53)
[2020-03-01] MEDS: APIXABAN 2.5 MG TABLET PO SCH (21:53)
[2020-03-01] MEDS: CETIRIZINE 10 MG TABLET PO SCH (21:53)
[2020-03-01] MEDS: BUDESONIDE/FORMOTEROL 160-4.5 INHALER 6 GM INH SCH (21:55)
[2020-03-01] MEDS ORDERED: ALBUTEROL/IPRATROPIUM 3 ML NEB RESP TX SCH (22:00)
[2020-03-02] MEDS: ALBUTEROL/IPRATROPIUM 3 ML NEB RESP TX SCH ×4 (01:01→18:59)
[2020-03-02 04:40] LABS: Basophils % 0.2 % (0.0-0.8); Hematocrit 26.1 VOL% (42.0-52.0); Hemoglobin 8.2 GM/DL (14.0-18.0); Immature Granulocytes % 1.4 %; Immature Granulocytes Absolute 0.06 #; Lymphocytes # 0.4 10*3/uL (1.4-4.0); Lymphocytes % 10.6 % (21.2-54.2); Mean Corpuscular HGB Conc 31.4 GM/DL (32-36); Mean Corpuscular Volume 92.2 FL (87-102); Mean Platelet Volume 10.2 FL (9.6-12.0); Monocytes % 2.6 % (1.7-12.7); Neutrophils % 85.2 % (38.7-73.9); Platelet Count 203 T/CUMM (130-400); Red Blood Count 2.83 MC/CUMM (3.8-5.5); White Blood Count 4.2 T/CUMM (4-12)
[2020-03-02 05:07] LABS: Albumin 2.6 G/DL (3.4-5.0); Bilirubin,Total 0.7 MG/DL (0.2-1.0); Calcium 8.5 MG/DL (8.5-10.1); Thyroid Stimulating Hormone 2.02 uIU/ml (0.358-3.74); Total Protein 5.8 G/DL (6.4-8.3)
[2020-03-02] MEDS: FUROSEMIDE 40 MG/4 ML VIAL IV SCH ×2 (08:38→15:55)
[2020-03-02] MEDS: ASPIRIN EC 81 MG TABLET PO SCH (08:38)
[2020-03-02] MEDS: TAMSULOSIN 0.4 MG CAPSULE PO SCH ×2 (08:38→21:05)
[2020-03-02] MEDS: METOPROLOL TARTRATE 50 MG TABLET PO SCH (08:38)
[2020-03-02] MEDS: INSULIN REGULAR 100 UNIT/ML SUBCUT SCH ×4 (08:38→21:05)
[2020-03-02] MEDS: TRIAMTERENE/HCTZ 37.5-25 MG CAPSULE PO SCH (08:38)
[2020-03-02] MEDS: PANTOPRAZOLE 40 MG TABLET PO SCH (08:38)
[2020-03-02] MEDS: APIXABAN 2.5 MG TABLET PO SCH ×2 (08:39→21:05)
[2020-03-02] MEDS: DOCUSATE SODIUM 100 MG CAPSULE PO SCH ×2 (08:39→21:05)
[2020-03-02] MEDS: AMIODARONE 200 MG TABLET PO SCH (08:43)
[2020-03-02] MEDS: BUDESONIDE/FORMOTEROL 160-4.5 INHALER 6 GM INH SCH ×2 (09:00→21:13)
[2020-03-02] MEDS: MONTELUKAST 10 MG TABLET PO SCH (18:13)
[2020-03-02] MEDS: CETIRIZINE 10 MG TABLET PO SCH (21:04)
[2020-03-02] MEDS: SIMVASTATIN 20 MG TABLET PO SCH (21:05)
[2020-03-03] MEDS: ALBUTEROL/IPRATROPIUM 3 ML NEB RESP TX SCH ×4 (00:43→18:55)
[2020-03-03 07:12] LABS: Basophils % 0.8 % (0.0-0.8); Eosinophils # 0.1 10*3/uL (0.0-0.87); Eosinophils % 1.5 % (0.00-10.9); Hemoglobin 8.2 GM/DL (14.0-18.0); Immature Granulocytes % 1.2 %; Immature Granulocytes Absolute 0.06 #; Lymphocytes % 18.9 % (21.2-54.2); Mean Corpuscular HGB Conc 30.4 GM/DL (32-36); Mean Corpuscular Volume 93.1 FL (87-102); Monocytes % 8.9 % (1.7-12.7); Neutrophils % 68.7 % (38.7-73.9); Platelet Count 209 T/CUMM (130-400); Red Cell Distribution Width 17.4 % (9.3-17.3); White Blood Count 5.2 T/CUMM (4-12)
[2020-03-03 07:50] LABS: Albumin 2.8 G/DL (3.4-5.0); Bilirubin,Total 0.6 MG/DL (0.2-1.0); Calcium 8.5 MG/DL (8.5-10.1); Osmolality,Calculated 288.4 MOS/KG (273-304); Total Protein 5.7 G/DL (6.4-8.3)
[2020-03-03] MEDS: INSULIN REGULAR 100 UNIT/ML SUBCUT SCH ×4 (08:21→20:58)
[2020-03-03] MEDS: BISOPROLOL 5 MG TABLET PO SCH (09:43)
[2020-03-03] MEDS: ASPIRIN EC 81 MG TABLET PO SCH (09:44)
[2020-03-03] MEDS: FUROSEMIDE 40 MG/4 ML VIAL IV SCH ×2 (09:44→17:13)
[2020-03-03] MEDS: PANTOPRAZOLE 40 MG TABLET PO SCH (09:44)
[2020-03-03] MEDS: APIXABAN 2.5 MG TABLET PO SCH ×2 (09:44→20:57)
[2020-03-03] MEDS: TRIAMTERENE/HCTZ 37.5-25 MG CAPSULE PO SCH (09:44)
[2020-03-03] MEDS: DOCUSATE SODIUM 100 MG CAPSULE PO SCH ×2 (09:44→20:58)
[2020-03-03] MEDS: TAMSULOSIN 0.4 MG CAPSULE PO SCH ×2 (09:44→20:57)
[2020-03-03] MEDS: BUDESONIDE/FORMOTEROL 160-4.5 INHALER 6 GM INH SCH ×2 (09:53→20:57)
[2020-03-03] MEDS: MONTELUKAST 10 MG TABLET PO SCH (17:13)
[2020-03-03] MEDS: CETIRIZINE 10 MG TABLET PO SCH (20:57)
[2020-03-03] MEDS: SIMVASTATIN 20 MG TABLET PO SCH (20:58)
[2020-03-04] MEDS: ALBUTEROL/IPRATROPIUM 3 ML NEB RESP TX SCH ×4 (01:32→18:22)
[2020-03-04 05:03] LABS: Basophils % 0.7 % (0.0-0.8); Eosinophils # 0.1 10*3/uL (0.0-0.87); Eosinophils % 2.2 % (0.00-10.9); Hemoglobin 8.3 GM/DL (14.0-18.0); Immature Granulocytes % 1.1 %; Immature Granulocytes Absolute 0.05 #; Lymphocytes # 0.9 10*3/uL (1.4-4.0); Lymphocytes % 20.5 % (21.2-54.2); Mean Corpuscular HGB Conc 30.7 GM/DL (32-36); Mean Corpuscular Volume 92.5 FL (87-102); Mean Platelet Volume 10.2 FL (9.6-12.0); Monocytes % 11.6 % (1.7-12.7); Neutrophils % 63.9 % (38.7-73.9); Platelet Count 192 T/CUMM (130-400); Red Blood Count 2.92 MC/CUMM (3.8-5.5); Red Cell Distribution Width 17.3 % (9.3-17.3); White Blood Count 4.5 T/CUMM (4-12)
[2020-03-04 05:26] LABS: Calcium 8.6 MG/DL (8.5-10.1); Osmolality,Calculated 293.3 MOS/KG (273-304)
[2020-03-04] MEDS: INSULIN REGULAR 100 UNIT/ML SUBCUT SCH ×4 (08:34→20:35)
[2020-03-04] MEDS: APIXABAN 2.5 MG TABLET PO SCH ×2 (09:13→20:34)
[2020-03-04] MEDS: TRIAMTERENE/HCTZ 37.5-25 MG CAPSULE PO SCH (09:13)
[2020-03-04] MEDS: TAMSULOSIN 0.4 MG CAPSULE PO SCH ×2 (09:13→20:34)
[2020-03-04] MEDS: ASPIRIN EC 81 MG TABLET PO SCH (09:13)
[2020-03-04] MEDS: BISOPROLOL 5 MG TABLET PO SCH (09:14)
[2020-03-04] MEDS: FUROSEMIDE 40 MG/4 ML VIAL IV SCH (09:14)
[2020-03-04] MEDS: DOCUSATE SODIUM 100 MG CAPSULE PO SCH ×2 (09:14→20:34)
[2020-03-04] MEDS: PANTOPRAZOLE 40 MG TABLET PO SCH (09:14)
[2020-03-04] MEDS: BUDESONIDE/FORMOTEROL 160-4.5 INHALER 6 GM INH SCH ×2 (09:26→20:37)
[2020-03-04] MEDS ORDERED: MAGNESIUM SULF RIDER 4 GM in PREMIX 1 EACH IV PRN (10:54)
[2020-03-04] MEDS ORDERED: MAGNESIUM SULF RIDER 2 GM in PREMIX 1 EACH IV PRN (10:54)
[2020-03-04] MEDS ORDERED: BISOPROLOL 5 MG TABLET PO SCH (11:03)
[2020-03-04] MEDS ORDERED: FUROSEMIDE 20 MG/2 ML VIAL IV ONE (16:00)
[2020-03-04] MEDS: MONTELUKAST 10 MG TABLET PO SCH (18:21)
[2020-03-04] MEDS: SIMVASTATIN 20 MG TABLET PO SCH (20:34)
[2020-03-04] MEDS: CETIRIZINE 10 MG TABLET PO SCH (20:34)
[2020-03-05] MEDS: ALBUTEROL/IPRATROPIUM 3 ML NEB RESP TX SCH ×2 (01:24→06:57)
[2020-03-05 06:52] LABS: Eosinophils # 0.2 10*3/uL (0.0-0.87); Eosinophils % 4.1 % (0.00-10.9); Hematocrit 28.7 VOL% (42.0-52.0); Hemoglobin 8.8 GM/DL (14.0-18.0); Immature Granulocytes % 0.8 %; Immature Granulocytes Absolute 0.03 #; Lymphocytes # 0.8 10*3/uL (1.4-4.0); Lymphocytes % 19.8 % (21.2-54.2); Mean Corpuscular HGB Conc 30.7 GM/DL (32-36); Mean Corpuscular Volume 93.2 FL (87-102); Mean Platelet Volume 9.8 FL (9.6-12.0); Monocytes % 10.3 % (1.7-12.7); Platelet Count 181 T/CUMM (130-400); Red Blood Count 3.08 MC/CUMM (3.8-5.5); Red Cell Distribution Width 17.4 % (9.3-17.3); White Blood Count 3.9 T/CUMM (4-12)
[2020-03-05 07:24] LABS: Calcium 8.7 MG/DL (8.5-10.1); Osmolality,Calculated 289.4 MOS/KG (273-304)
[2020-03-05] MEDS ORDERED: FUROSEMIDE 20 MG TABLET PO SCH (09:00)
[2020-03-05] MEDS ORDERED: FUROSEMIDE 40 MG TABLET PO SCH ×2 (09:00→11:27)
[2020-03-05] MEDS: PANTOPRAZOLE 40 MG TABLET PO SCH (09:37)
[2020-03-05] MEDS: TAMSULOSIN 0.4 MG CAPSULE PO SCH (09:37)
[2020-03-05] MEDS: APIXABAN 2.5 MG TABLET PO SCH (09:37)
[2020-03-05] MEDS: DOCUSATE SODIUM 100 MG CAPSULE PO SCH (09:37)
[2020-03-05] MEDS: ASPIRIN EC 81 MG TABLET PO SCH (09:37)
[2020-03-05] MEDS: TRIAMTERENE/HCTZ 37.5-25 MG CAPSULE PO SCH (09:37)
[2020-03-05] MEDS: BUDESONIDE/FORMOTEROL 160-4.5 INHALER 6 GM INH SCH (09:38)
[2020-03-05] MEDS: INSULIN REGULAR 100 UNIT/ML SUBCUT SCH ×2 (09:38→11:53)
[2020-03-05 11:41] LABS: Apearance,Urine CLEAR (Clear); Bacteria,Urine Occasional /HPF (Few); Bilirubin,Urine Negative (Negative); Blood, Urine Small mg/dL (Negative); Glucose,Urine (UA) 50 mg/dL (Negative); Hyaline Casts,Urine 4 /LPF (0-3); Ketones,Urine Negative (Negative); Nitrite,Urine Negative (Negative); Protein,Urine 30 MG/DL; RBC,Urine 3 /HPF (0-4); Squamous Epithelial Cell,Urine Occasional /HPF (0-10); Urine Color Yellow (Yellow); Urine Specific Gravity 1.013 (1.001-1.035); Urine Urobilinogen < 2.0 EU/DL (0.2-1.0); WBC,Urine 1 /HPF (0-6)
[2020-03-05 12:01] VITALS: BP 140/91
== END 2020-03-05 13:33 | disposition home health service (06) | DRG 291 ==
LOC: N.ED 13:10 → N.EDINP 15:58 → N.TELES 17:40
PROVIDERS: ADMIT Family Medicine; ATTEND Family Medicine